=== PATIENT | female | born 1975 | race African-American/Black ===

== ENCOUNTER 2020-09-21 09:44 | Inpatient (IN) ==
[2020-09-21] MEDS ORDERED: ACETAMINOPHEN 325 MG TABLET PO ONE (10:11)
[2020-09-21] MEDS ORDERED: SODIUM CHLORIDE 0.9% 1,000 ML IV STA (10:11)
[2020-09-21] MEDS ORDERED: ONDANSETRON 4 MG/2 ML VIAL IV ONE (10:11)
[2020-09-21 10:42] LABS: Basophils % 0.2 % (0.0-0.8); Eosinophils # 0.2 10*3/uL (0.0-0.87); Eosinophils % 1.6 % (0.00-10.9); Hematocrit 34.4 VOL% (35.7-47.0); Hemoglobin 10.4 GM/DL (12.0-16.0); Immature Granulocytes % 0.5 %; Immature Granulocytes Absolute 0.07 #; Lymphocytes # 3.4 10*3/uL (1.4-4.0); Lymphocytes % 24.3 % (21.3-54.2); Mean Corpuscular HGB Conc 30.2 GM/DL (32-36); Mean Corpuscular Volume 82.5 FL (87-102); Mean Platelet Volume 10.7 FL (9.6-12.0); Monocytes % 5.9 % (1.7-12.7); Neutrophils % 67.5 % (38.7-73.9); Platelet Count 341 T/CUMM (130-400); Red Blood Count 4.17 MC/CUMM (3.8-5.5); Red Cell Distribution Width 14.4 % (9.3-17.3); White Blood Count 14.2 T/CUMM (4-12)
[2020-09-21 10:52] LABS: INR 1.1; PT Patient Result 11.6 SECS (9.8-11.9)
[2020-09-21 10:55] LABS: Bilirubin,Urine Negative (Negative); Blood, Urine Large mg/dL (Negative); Glucose,Urine (UA) Negative (Negative); Ketones,Urine Negative (Negative); Mucus,Urine Occasional /LPF (Occasional); Nitrite,Urine Negative (Negative); Protein,Urine 30 MG/DL; RBC,Urine 300 /HPF (0-4); Squamous Epithelial Cell,Urine Few /HPF (0-10); Urine Appearance CLOUDY (Clear); Urine Color Yellow (Yellow); Urine Specific Gravity 1.011 (1.001-1.035); Urine Urobilinogen < 2.0 EU/DL (0.2-1.0); WBC,Urine 95 /HPF (0-6)
[2020-09-21 11:02] LABS: Band Neutrophils 6 % (0-10); Eosinophils 4 % (0-10); Hypochromasia Slight; Lymphocytes 27 % (20-55); Platelet Estimate Normal; Segmented Neutrophils 58 % (50-85); Total Cells Counted 100
[2020-09-21 11:11] LABS: Alanine Aminotransferase 39 U/L (13-56); Albumin 2.4 G/DL (3.4-5.0); Alkaline Phosphatase 98 U/L (45-117); Aspartate Amino Transferase 25 U/L (0-37); Bilirubin,Total < 0.39 MG/DL (0.2-1.0); Blood Urea Nitrogen 23 MG/DL (7-18); Calcium 8.4 MG/DL (8.5-10.1); Carbon Dioxide 25 MMOL/L (21-32); Estimated Glom Filtration Rate 55 ML/MIN; Glucose 149 MG/DL (74-106); Osmolality,Calculated 281.7 MOS/KG (273-304); Potassium 4.4 MMOL/L (3.5-5.1); Sodium 138 MMOL/L (136-145); Total Protein 6.5 G/DL (6.4-8.3); Troponin I < 0.015 NG/ML (0.00-0.045)
[2020-09-21] MEDS ORDERED: PIPERACILLIN/TAZOBACTAM 3,375 MG in SODIUM CHLORIDE 0.9% 100 ML IV STA (11:15)
[2020-09-21] MEDS ORDERED: VANCOMYCIN INJ 1,000 MG in SODIUM CHLORIDE 0.9% 250 ML IV STA (11:15)
[2020-09-21] MEDS ORDERED: DOCUSATE SODIUM 100 MG CAPSULE PO PRN (12:02)
[2020-09-21] MEDS ORDERED: GLUCAGON 1 MG VIAL IM PRN (12:02)
[2020-09-21] MEDS ORDERED: hydrALAZINE 20 MG/1 ML VIAL IV PRN (12:02)
[2020-09-21] MEDS ORDERED: DEXTROSE 50% 25 GM/50 ML VIAL IV PRN (12:02)
[2020-09-21 13:51] LABS: Ferritin 170.1 ng/ml (8-252)
[2020-09-21] MEDS: SODIUM CHLORIDE 0.9% 1,000 ML IV SCH (14:10)
[2020-09-21] MEDS: ENOXAPARIN 40 MG/0.4 ML SYRINGE SUBCUT SCH (14:10)
[2020-09-21] MEDS: ONDANSETRON 4 MG/2 ML VIAL IV PRN ×2 (14:10→19:35)
[2020-09-21] MEDS: cefTRIAXone 1,000 MG in SYRINGE 1 EACH IV SCH (14:10)
[2020-09-21] MEDS: AZITHROMYCIN INJ 500 MG in SODIUM CHLORIDE 0.9% 250 ML IV SCH (14:55)
[2020-09-21] MEDS: INSULIN REGULAR 100 UNIT/ML SUBCUT SCH ×2 (16:28→20:37)
[2020-09-22] MEDS: ACETAMINOPHEN 325 MG TABLET PO PRN ×2 (00:45→08:35)
[2020-09-22] MEDS: SODIUM CHLORIDE 0.9% 1,000 ML IV SCH ×3 (00:45→22:34)
[2020-09-22] MEDS ORDERED: LEVOTHYROXINE 25 MCG TABLET PO SCH (07:00)
[2020-09-22 07:04] LABS: Basophils # 0.1 10*3/uL (0.0-0.2); Basophils % 0.4 % (0.0-0.8); Eosinophils # 0.1 10*3/uL (0.0-0.87); Eosinophils % 0.5 % (0.00-10.9); Hematocrit 32.8 VOL% (35.7-47.0); Hemoglobin 10.1 GM/DL (12.0-16.0); Immature Granulocytes % 0.5 %; Immature Granulocytes Absolute 0.06 #; Lymphocytes # 2.7 10*3/uL (1.4-4.0); Lymphocytes % 20.5 % (21.3-54.2); Mean Corpuscular HGB Conc 30.8 GM/DL (32-36); Mean Platelet Volume 10.9 FL (9.6-12.0); Monocytes % 7.2 % (1.7-12.7); Neutrophils % 70.9 % (38.7-73.9); Platelet Count 342 T/CUMM (130-400); Red Cell Distribution Width 14.5 % (9.3-17.3); White Blood Count 12.9 T/CUMM (4-12)
[2020-09-22] MEDS: INSULIN REGULAR 100 UNIT/ML SUBCUT SCH ×4 (07:30→21:11)
[2020-09-22] MEDS: PANTOPRAZOLE 40 MG TABLET PO SCH (08:30)
[2020-09-22 08:35] LABS: Calcium 8.5 MG/DL (8.5-10.1); Osmolality,Calculated 273.7 MOS/KG (273-304); Risk Ratio 2.85; VLDL CHOLESTEROL 32.2 MG/DL
[2020-09-22] MEDS: glyBURIDE 5 MG TABLET PO SCH ×2 (08:47→20:33)
[2020-09-22] MEDS: ONDANSETRON 4 MG/2 ML VIAL IV PRN (09:56)
[2020-09-22] MEDS: cefTRIAXone 1,000 MG in SYRINGE 1 EACH IV SCH (12:50)
[2020-09-22] MEDS: ENOXAPARIN 40 MG/0.4 ML SYRINGE SUBCUT SCH (12:53)
[2020-09-22] MEDS: AZITHROMYCIN INJ 500 MG in SODIUM CHLORIDE 0.9% 250 ML IV SCH (12:54)
[2020-09-22] MEDS ORDERED: ALUMINUM/MAGNES/SIMETH MAX STR 30 ML UDCUP PO PRN (20:41)
[2020-09-22] MEDS ORDERED: SIMVASTATIN 20 MG TABLET PO SCH (21:00)
[2020-09-23] MEDS ORDERED: LEVOTHYROXINE 75 MCG TABLET PO SCH (06:30)
[2020-09-23 06:31] LABS: Basophils % 0.3 % (0.0-0.8); Eosinophils # 0.1 10*3/uL (0.0-0.87); Eosinophils % 1.1 % (0.00-10.9); Hematocrit 32.9 VOL% (35.7-47.0); Hemoglobin 10.4 GM/DL (12.0-16.0); Immature Granulocytes % 0.3 %; Immature Granulocytes Absolute 0.04 #; Lymphocytes # 3.6 10*3/uL (1.4-4.0); Lymphocytes % 30.6 % (21.3-54.2); Mean Corpuscular HGB Conc 31.6 GM/DL (32-36); Mean Corpuscular Volume 79.9 FL (87-102); Mean Platelet Volume 10.4 FL (9.6-12.0); Monocytes % 7.3 % (1.7-12.7); Neutrophils % 60.4 % (38.7-73.9); Platelet Count 322 T/CUMM (130-400); Red Blood Count 4.12 MC/CUMM (3.8-5.5); Red Cell Distribution Width 14.3 % (9.3-17.3); White Blood Count 11.7 T/CUMM (4-12)
[2020-09-23 06:56] LABS: Calcium 8.3 MG/DL (8.5-10.1); Osmolality,Calculated 276.4 MOS/KG (273-304); Potassium 3.9 MMOL/L (3.5-5.1)
[2020-09-23] MEDS ORDERED: MAGNESIUM SULF RIDER 2 GM in PREMIX 1 EACH IV ONE ×2 (07:05→09:18)
[2020-09-23] MEDS: INSULIN REGULAR 100 UNIT/ML SUBCUT SCH ×2 (07:51→11:51)
[2020-09-23] MEDS: glyBURIDE 5 MG TABLET PO SCH (08:39)
[2020-09-23] MEDS: PANTOPRAZOLE 40 MG TABLET PO SCH (08:39)
[2020-09-23] MEDS: SODIUM CHLORIDE 0.9% 1,000 ML IV SCH (08:40)
[2020-09-23] MEDS ORDERED: SODIUM PHOSPHATE ENEMA 133 ML BOTTLE RECTAL ONE (09:48)
[2020-09-23] MEDS ORDERED: MAGNESIUM HYDROXIDE SUSP 30 ML UDCUP PO ONE (09:48)
[2020-09-23] MEDS ORDERED: LEVOFLOXACIN 500 MG TABLET PO SCH (10:30)
[2020-09-23 11:46] VITALS: BP 145/77
[2020-09-24] MEDS ORDERED: POLYETHYLENE GLYCOL POWDER 17 GM PACK PO SCH (09:00)
== END 2020-09-23 13:00 | disposition home or self-care (01) | DRG 463 ==
LOC: N.ED 09:44 → N.EDINP 11:59 → N.5E 13:15
PROVIDERS: ADMIT Internal Medicine; ATTEND Internal Medicine